=== PATIENT | female | born 1975 | race African-American/Black ===

== ENCOUNTER 2017-11-22 14:51 | Observation (INO) | payer OTHER ==
--- NOTE | 2017-11-22 15:26 | PDOC ---
History of Present Illness - General Chief Complaint: Pain, Acute Stated Complaint: ABDOMINAL PAIN Time Seen by Provider: 11/22/17 14:58 History Source: Patient Exam Limitations: No Limitations - History of Present Illness Initial Comments: This is a 42 YOF with unremarkable PMH who was referred to our ED by Urgent Care for two days of worsening crampy RLQ and suprapubic pain which has acutely worsened in the past 3 hours and now is sharp in the RLQ. She additionally notes decreased appetite and nausea, but has not had vomiting, fever, chills, diarrhea, constipation, black/bloody stool, chest pain, shortness of breath, lightheadedness, palpitations, headache, rash, vaginal bleeding or discharge, blood in the urine, dysuria, or other symptoms. She denies any chance she could be but has not been using any form of control. Last PO solids was this morning (banana and part of an apple), and she last drank water on arrival to the ED. Past History - Past Medical History Allergies/Adverse Reactions: Allergies Allergy/AdvReac Type Severity Reaction Status Date / Time latex Allergy Verified 11/22/17 14:52 Home Medications: Ambulatory Orders NK [No Known Home Medication] 11/22/17 COPD: No Other medical history: DENIES. - Suicide/Smoking/Psychosocial Hx Smoking History: Never smoked Review of Systems - Review of Systems Able to Perform ROS?: Yes Constitutional: Yes: Loss of Appetite. No: Chills, Fever, Unexplained wgt Loss HEENTM: No: Nose Congestion, Throat Pain Respiratory: No: Cough, Shortness of Breath Cardiac (ROS): No: Chest Pain, Palpitations ABD/GI: Yes: Nausea, Other (abdominal pain). No: Constipated, Diarrhea, Vomiting : No: Burning, Dysuria Musculoskeletal: No: Back Pain, Neck Pain Integumentary: No: Bruising, Rash Neurological: No: Headache, Numbness, Tingling, Weakness, Dizziness Endocrine: No: Unexplained Weight Gain, Unexplained Weight Loss *Physical Exam - Vital Signs Last Vital Signs Temp Pulse Resp BP Pulse Ox 98.3 F 111 H 20 132/86 99 11/22/17 14:52 11/22/17 14:52 11/22/17 14:52 11/22/17 14:52 11/22/17 14:52 - Physical Exam General Appearance: Yes: Nourished, Appropriately Dressed, Other (appears uncomfortable, writhing a bit in bed, answering questions appropriately, accompanied by significant other at bedside). No: Apparent Distress HEENT: positive: EOMI, Normal Voice, Hearing Grossly Normal. negative: Scleral Icterus (R), Scleral Icterus (L), Nasal Congestion Neck: positive: Trachea midline, Supple. negative: Tender, Rigid Respiratory/Chest: positive: Lungs Clear, Normal Breath Sounds. negative: Respiratory Distress, Crackles, Rhonchi, Stridor, Wheezing Cardiovascular: positive: Regular Rhythm, Regular Rate. negative: Murmur Gastrointestinal/Abdominal: positive: Normal Bowel Sounds, Tender (RLQ ttp at McBurney's point), Soft. negative: Organomegaly, Pulsatile Mass, Guarding Musculoskeletal: positive: Normal Inspection. negative: Decreased Range of Motion, Vertebral Tenderness Extremity: positive: Normal Capillary Refill, Normal Inspection, Normal Range of Motion. negative: Tender, Cyanosis Integumentary: positive: Normal Color, Dry, Warm. 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 Initial Vital Signs Temp Pulse Resp BP Pulse Ox 98.3 F 111 H 20 132/86 99 11/22/17 14:52 11/22/17 14:52 11/22/17 14:52 11/22/17 14:52 11/22/17 14:52 Exam: appears uncomfortable, writhing, normal heart and lungs, RLQ mild ttp, + right CVA ttp DDX IBNLT: obstructing ureteral stone, UTI/pyelonephritis, ovarian torsion, ovarian cyst, ectopic , PID, TOA, endometritis, salpingitis, oophoritis , Phon-Qabh-Fcoyty syndrome (if involving liver capsule ACS, AAA/AD, malignancy , hernia, cholecystitis, pancreatitis, gastritis, PUD, appendicitis, diverticulitis wwo abscess or perforation, colitis, regional ileitis (Crohns disease), SBO, bowel ischemia, bowel perforation, constipation, musculoskeletal , primary dysmenorrhea, endometriosis, fibroids, etc. W/U ordered: CBCD CMP Coags T&S UA UCx Serum Preg CT A/P with IV and PO contrast TX ordered: IVF, Ofirmev, Morphine Laboratory Tests 11/22/17 11/22/17 11/22/17 15:29 15:37 15:37 WBC 7.0 RBC 4.49 Hgb 13.2 Hct 40.1 MCV 89.3 MCH 29.3 MCHC 32.8 RDW 14.4 Plt Count 411 MPV 7.2 L Absolute Neuts (auto) 5.3 Neutrophils % 75.6 Lymphocytes % 18.7 Monocytes % 5.0 Eosinophils % 0.0 Basophils % 0.7 Nucleated RBC % 0 PT with INR INR PTT (Actin FS) Sodium 139 Potassium 3.9 Chloride 106 Carbon Dioxide 23 Anion Gap 10 BUN 9 Creatinine 1.0 Creat Clearance w eGFR > 60 Random Glucose 121 H Lactic Acid 3.2 H* Calcium 8.7 Total Bilirubin 0.3 AST 13 L ALT 16 Alkaline Phosphatase 54 Total Protein 7.9 Albumin 4.2 Serum , Qual Urine Color Urine Appearance Urine pH Ur Specific [place] Urine Protein Urine Glucose (UA) Urine Ketones Urine Blood Urine Nitrite Urine Bilirubin Urine Urobilinogen Ur Leukocyte Esterase Urine WBC (Auto) Urine RBC (Auto) Ur Epithelial Cells Urine Mucus Blood Type Antibody Screen 11/22/17 11/22/17 11/22/17 15:37 15:37 17:00 WBC RBC Hgb Hct MCV MCH MCHC RDW Plt Count MPV Absolute Neuts (auto) Neutrophils % Lymphocytes % Monocytes % Eosinophils % Basophils % Nucleated RBC % PT with INR 13.30 H INR 1.18 H PTT (Actin FS) 26.3 Sodium Potassium Chloride Carbon Dioxide Anion Gap BUN Creatinine Creat Clearance w eGFR Random Glucose Lactic Acid Calcium Total Bilirubin AST ALT Alkaline Phosphatase Total Protein Albumin Serum , Qual Negative Urine Color Urine Appearance Urine pH Ur Specific [place] Urine Protein Urine Glucose (UA) Urine Ketones Urine Blood Urine Nitrite Urine Bilirubin Urine Urobilinogen Ur Leukocyte Esterase Urine WBC (Auto) Urine RBC (Auto) Ur Epithelial Cells Urine Mucus Blood Type B POSITIVE Antibody Screen Negative 11/22/17 17:00 WBC RBC Hgb Hct MCV MCH MCHC RDW Plt Count MPV Absolute Neuts (auto) Neutrophils % Lymphocytes % Monocytes % Eosinophils % Basophils % Nucleated RBC % PT with INR INR PTT (Actin FS) Sodium Potassium Chloride Carbon Dioxide Anion Gap BUN Creatinine Creat Clearance w eGFR Random Glucose Lactic Acid Calcium Total Bilirubin AST ALT Alkaline Phosphatase Total Protein Albumin Serum , Qual Urine Color Ltyellow Urine Appearance Clear Urine pH 6.0 Ur Specific [place] 1.024 Urine Protein 1+ H Urine Glucose (UA) Negative Urine Ketones 2+ H Urine Blood 2+ H Urine Nitrite Negative Urine Bilirubin Negative Urine Urobilinogen Negative Ur Leukocyte Esterase Trace Urine WBC (Auto) 7 Urine RBC (Auto) 188 Ur Epithelial Cells Rare Urine Mucus Rare Blood Type Antibody Screen Reassessment: Symptoms improved but still somewhat painful, persistent RLQ and right CVA ttp. Not requesting any additional pain medications. The Pts symptoms persist despite ED treatments. The Pt is unsafe for discharge at this time. They require further hospital observation, workup, and treatment. Patient's PCP is Radha Blackwell. Call placed to Dr. Blackwell's service. 11/22/17 23:[address] Blackwell, in agreement patient to be admitted ot Med/Surg Obs. Requests urology consult with Dr. Infante. Decision to Admit and consult order placed. *DC/Admit/Observation/Transfer Diagnosis at time of Disposition: Ureteral stone Hydronephrosis Qualifiers: Hydronephrosis type: unspecified Qualified Code(s): N13.30 - Unspecified hydronephrosis - Discharge Dispostion Condition at time of disposition: Guarded Decision to Admit order: Yes - Referrals Referrals: Refugio Gonzalez MD [Primary Care Provider] - - Patient Instructions - Post Discharge Activity
[2017-11-22] MEDS ORDERED: ACETAMINOPHEN 1000 MG/100 ML VIAL (NON FORMULARY) IVPB ONE ×2 (15:27→23:28)
[2017-11-22] MEDS ORDERED: ACETAMINOPHEN INJECTION 100 ML IVPB ONE ×2 (15:35→23:33)
--- NOTE | 2017-11-22 16:08 | PDOC ---
Attending Attestation - Resident Resident Name: Shilpa Reina - ED Attending Attestation I have performed the following: I have examined & evaluated the patient, The case was reviewed & discussed with the resident, I agree w/resident's findings & plan, Exceptions are as noted - HPI HPI: 11/22/17 15:57 "Patient is a 42 y.o. female with no significant PMHx, who presents with RLQ pain, referred from [facility] for r/o appendicitis. Patient states that her abdominal pain began on Thursday and has been constant, non-radiating. Pt denies F /C. Endorses nausea without vomiting. Denies diarrhea/constipation. Pt was seen at [facility] urgent care today and had an US that showed R renal stone with R hydronephrosis, as well as an "abnormal appendix". Pt denies vaginal bleeding/ discharge. - Physicial Exam PE: 11/22/17 16:08 """GENERAL: Awake, alert, and fully oriented, in no acute distress. HEAD: No signs of trauma EYES: PERRLA, EOMI, sclera anicteric, conjunctiva clear ENT: Auricles normal inspection, hearing grossly normal, nares patent, oropharynx clear without exudates. Moist mucosa NECK: Nontender, no stepoffs, Normal ROM, supple, no lymphadenopathy, JVD, or masses LUNGS: Breath sounds equal, clear to auscultation bilaterally. No wheezes, and no crackles HEART: Regular rate and rhythm, normal S1 and S2, no murmurs, rubs or gallops ABDOMEN: + RLQ tenderness, no CVAT, normoactive bowel sounds. No guarding, no rebound. No masses EXTREMITIES: Normal range of motion, no edema. No clubbing or cyanosis. No cords, erythema, or tenderness NEUROLOGICAL: Cranial nerves II through XII intact. 5/5 strength and sensation in all extremities, Normal speech, normal gait, normal cerebellar function SKIN: Warm, Dry, normal turgor, no rashes or lesions noted. """ - Medical Decision Making 11/22/17 16:08 42 yo F with RLQ pain, found to have R nephrolithiasis as well as abnormal appendix on US. Will need appy r/o. - Labs, UA, UCx - CTAP with IV and PO contrast - IVF, pain control
[2017-11-22 16:09] LABS: BASO % 0.7 % (0-2.0); HEMATOCRIT 40.1 % (32.4-45.2); HEMOGLOBIN 13.2 GM/dL (10.7-15.3); LYMPH % 18.7 % (8-40); MCH 29.3 pg (25.7-33.7); MCHC 32.8 g/dl (32.0-36.0); MEAN CELL VOLUME 89.3 fl (80-96); MEAN PLT VOLUME 7.2 fl (7.5-11.1); NEUT % 75.6 % (42.8-82.8); PLATELET COUNT 411 K/MM3 (134-434); RBC 4.49 M/mm3 (3.60-5.2); RDW 14.4 % (11.6-15.6)
[2017-11-22] MEDS ORDERED: SODIUM CHLORIDE 1,000 ML IV STA (16:09)
[2017-11-22 16:40] LABS: ALBUMIN 4.2 g/dl (3.4-5.0); ANION GAP 10 (8-16); BILIRUBIN,TOTAL 0.3 mg/dL (0.2-1.0); BLOOD UREA NITROGEN 9 mg/dL (7-18); CALCIUM 8.7 mg/dL (8.5-10.1); CHLORIDE 106 mmol/L (98-107); CO2 23 mmol/L (21-32); GLUCOSE,RANDOM 121 mg/dL (74-106); POTASSIUM 3.9 mmol/L (3.5-5.1); SGOT/AST 13 U/L (15-37); SGPT/ALT 16 U/L (12-78); SODIUM 139 mmol/L (136-145); TOT PROT 7.9 g/dl (6.4-8.2)
[2017-11-22 16:41] LABS: ALK PHOS 54 U/L (45-117)
[2017-11-22 17:12] LABS: URINE APPEARANCE CLEAR; URINE BILIRUBIN NEGATIVE (<2.0 mg/dL); URINE COLOR LTYELLOW; URINE GLUCOSE (UA) NEGATIVE (NEGATIVE); URINE KETONE 2+ (NEGATIVE); URINE LEUK ESTERASE TRACE (NEGATIVE); URINE NITRITE NEGATIVE (NEGATIVE); URINE UROBILINOGEN NEGATIVE mg/dL (0.2-1.0)
[2017-11-22 17:19] LABS: URINE PROTEIN 1+ (NEGATIVE)
[2017-11-22 17:20] LABS: EPI CELLS RARE /HPF (FEW); URINE MUCUS RARE
[2017-11-22 17:24] LABS: INR 1.18 (0.82-1.09); PROTHROMBIN TIME (PATIENT) 13.3 SEC (9.7-13.0)
[2017-11-22] MEDS ORDERED: SODIUM CHLORIDE 0.9% 500 ML INFUS.BAG IV ONE (17:26)
[2017-11-22 17:27] LABS: ACTIVATED PTT 26.3 SECONDS (25.2-36.5)
[2017-11-23] MEDS ORDERED: D5-1/2NS+20 MEQ KCL - 20 MEQ/1,000 ML INFUS.BAG IV ONE (11:08)
[2017-11-23] MEDS ORDERED: ACETAMINOPHEN WITH CODEINE 300MG/30MG TABLET PO PRN (11:30)
[2017-11-23] MEDS ORDERED: ACETAMINOPHEN WITH CODEINE 300MG/30MG TABLET PO SCH (12:00)
--- NOTE | 2017-11-23 12:10 | EKG ---
Test Reason : Blood Pressure : / mmHG Vent. Rate : 085 BPM Atrial Rate : 085 BPM P-R Int : 178 ms QRS Dur : 082 ms QT Int : 384 ms P-R-T Axes : 051 035 036 degrees QTc Int : 456 ms NORMAL SINUS RHYTHM NORMAL ECG NO PREVIOUS ECGS AVAILABLE Confirmed by ALESSANDRO JACK MD ([id number]) on 11/23/2017 12:09:39 PM Referred By: Confirmed By:ALESSANDRO JACK MD
--- NOTE | 2017-11-23 13:01 | CON.GU ---
Consult Consult Specialty:: Referred by:: Rishi Reason for Consultation:: R ureteral calculus - History of Present Illness Chief Complaint: abd pain History of Present Illness: 42 yo f adm 11/22/17 c/o 3 days of R sided abd pain, found to have obstructing 7 mm R mid ureteral calculus with mod-severe R hydronephrosis and cons req. - History Source History Provided By: Patient, Medical Record - Smoking History Smoking history: Never smoked Home Medications - Allergies Allergies/Adverse Reactions: Allergies Allergy/AdvReac Type Severity Reaction Status Date / Time latex Allergy Verified 11/22/17 14:52 - Home Medications Home Medications: Ambulatory Orders NK [No Known Home Medication] 11/22/17 Review of Systems - Review of Systems Genitourinary: reports: Flank Pain Physical Exam- Vital Signs: Vital Signs Temperature 98.9 F 11/23/17 08:44 Pulse Rate 94 H 11/23/17 08:44 Respiratory Rate 18 11/23/17 10:13 Blood Pressure 113/76 11/23/17 08:44 O2 Sat by Pulse Oximetry (%) 100 11/23/17 10:13 Gastrointestinal: Yes: Soft Renal/: Yes: CVA Tenderness - Right Labs: CBC, BMP 11/22/17 15:37 11/22/17 15:37 Imaging - Results Cat Scan: Report Reviewed, Image Reviewed Problem List - Problems (1) Renal calculus Code(s): N20.0 - CALCULUS OF KIDNEY (2) Hydronephrosis Assessment/Plan: cysto R JJ stent insertion then RULL vs ESWL Code(s): N13.30 - UNSPECIFIED HYDRONEPHROSIS Qualifiers: Hydronephrosis type: unspecified Qualified Code(s): N13.30 - Unspecified hydronephrosis (3) Ureteral stone Assessment/Plan: ureteroscopic laser lithotripsy vs ESWL Code(s): N20.1 - CALCULUS OF URETER
[2017-11-23] MEDS ORDERED: ACETAMINOPHEN WITH CODEINE 300MG/30MG TABLET ONE (17:23)
--- NOTE | 2017-11-23 20:35 | HP ---
DATE OF ADMISSION: 11/22/2017 This is a 42-year-old female well known to me, came to the emergency room with complaints of lower abdominal pain mostly on the right side. In the ER, it was found that patient had kidney stones, and 1 stone is also blocking the ureter with right hydronephrosis. So, patient was admitted because of intractable pain. PHYSICAL EXAMINATION: General: On examination this morning, she is comfortable on bed. Vital Signs: BP 130/80, pulse 72, respirations 20, temperature 98. HEENT: Unremarkable. Neck: Supple. No JVD. Lungs: Clear. Heart: S1 and S2 normal. No S3, S4. Abdomen: Soft. No CVA tenderness. No suprapubic tenderness. Legs: No edema. Neurologic: Grossly normal. LABORATORY REPORTS: CBC, CMP, and urinalysis unremarkable. Chest x-ray is negative. CT of abdomen showed right hydronephrosis with a 6-mm stone blocking in the right ureter. Also, has small stones in both kidneys. IMPRESSION: Ureter and hydronephrosis. PLAN: Urology consult, Dr. Pritchett, Dr. John. IV fluid, D5 half-normal with 20 mEq of KCL to 100 mL. Advised to drink plenty of water and Tylenol No. 3 two tablets q.6 hours p.r.n. for pain. She will be admitted to the regular floor. Will follow. RAJAN DAVIS M.D. [id number]
[2017-11-24 00:04] VITALS: BMI 28.8
[2017-11-24] MEDS ORDERED: SUCCINYLCHOLINE CHLORIDE 200 MG/10 ML VIAL ONE (07:05)
[2017-11-24] MEDS ORDERED: MIDAZOLAM HCL 2 MG/2 ML SINGLE DOSE VIAL ONE (07:05)
[2017-11-24] MEDS ORDERED: PROPOFOL 20 ML ONE ×2 (07:05)
--- NOTE | 2017-11-24 08:03 | OP ---
Operative Note - Note: Operative Date: 11/24/17 Pre-Operative Diagnosis: R ureteral calculus, R hydronephrosis Operation: cystoscopy R JJ stent insertion Findings: R ureteral calculus, R hydronephrosis, tortuous R ureter Post-Operative Diagnosis: Same as Pre-op Surgeon: Glenn Espinoza Anesthesiologist/MANAGER INTENSIVE CARE UNIT: [facility]te Anesthesia: General Estimated Blood Loss (mls): 0 Drains & Tubes with Location: 6 fr 26 cm R JJ Operative Report Dictated: Yes
[2017-11-24] MEDS ORDERED: ceFAZolin SODIUM 1 GM VIAL IVPB ONE (08:08)
[2017-11-24] MEDS ORDERED: LIDOCAINE HCL 2% JELLY 10 ML CARTRIDGE TP ONE (08:30)
[2017-11-24] MEDS ORDERED: oxyCODONE HCL 5 MG TABLET PO PRN (08:45)
[2017-11-24] MEDS ORDERED: ONDANSETRON 4 MG/2 ML VIAL IVPUSH PRN (08:45)
[2017-11-24] MEDS ORDERED: LACTATED RINGERS SOLUTION 1,000 ML IV SCH (08:45)
--- NOTE | 2017-11-24 08:47 | OP ---
Operative Note - Note: Operative Date: 11/24/17 Pre-Operative Diagnosis: R ureteral calculus, R hydronephrosis Operation: cystoscopy, R JJ stent insertion Findings: R ureteral calculus, R hydronephrosis Post-Operative Diagnosis: Same as Pre-op Estimated Blood Loss (mls): 0 Drains & Tubes with Location: 6 fr 24 cm R JJ Operative Report Dictated: Yes
[2017-11-24] MEDS ORDERED: ACETAMINOPHEN WITH CODEINE 300MG/30MG TABLET PO PRN (08:49)
[2017-11-24] MEDS ORDERED: ACETAMINOPHEN INJECTION 100 ML IVPB ONE (09:00)
--- NOTE | 2017-11-24 09:06 | OP ---
DATE OF OPERATION: 11/24/2017 PREOPERATIVE DIAGNOSIS: Right ureteral calculus, right hydronephrosis. POSTOPERATIVE DIAGNOSIS: Right ureteral calculus, right hydronephrosis. PROCEDURE: Cystoscopy, right double-J stent insertion. SURGEON: Glenn Espinoza MD RUSTIC TERRAZZO SETTER: None. ANESTHESIA: General via laryngeal mask. ANESTHESIOLOGIST: Maryana. SPECIMENS: None. CULTURES: None. DRAINS: 6-Comoran 26-cm right double-J stent. ESTIMATED BLOOD LOSS: None. COMPLICATIONS: None. DESCRIPTION OF PROCEDURE: Patient was brought in the operating room, placed on the operating table in supine position. After administration of general anesthesia via laryngeal mask, intravenous antibiotics were administered. Sequential compression devices were placed, and the patient was placed in dorsal lithotomy position. The vagina and perineum were prepped and draped in the usual sterile manner. A 22-Comoran cystoscope inserted into the bladder with the obturator in place. The obturator was removed, and urine was evacuated. The 30-degree telescope was inserted, and cystoscopy was performed. This demonstrated no foreign bodies, tumors, stones, inflammation. Both ureteral orifices were in their usual location with clear efflux bilaterally. The right ureteral orifice showed diminished efflux. The right ureteral orifice was now cannulated with a 0.038 guidewire which was advanced to the level of the right renal pelvis under fluoroscopic and direct visual guidance. Now, a dual-lumen catheter was inserted. Retrograde pyelogram was done, demonstrated an extremely tortuous right ureter and [id number] right hydroureteronephrosis down to a distal ureteral obstructing stone that could not be clearly seen on fluoroscopy. There was a larger calcified density within the course of the ureter, overlying the sacrum. The dual-lumen catheter was then removed, and a 6-Comoran 26-cm right double-J stent was inserted over the guidewire under direct visual and fluoroscopic guidance, leaving 1 coil just proximal to the ureteropelvic junction and 1 coil in the bladder. Bladder was emptied. Cystoscope removed. She tolerated the procedure well, transferred to recovery room in stable condition. PLAN: Follow up in the office to schedule ureteroscopic laser lithotripsy and stent change. Nicole [id number] cc: Radha Blackwell MD
[2017-11-24] MEDS ORDERED: ACETAMINOPHEN 1000 MG/100 ML VIAL (NON FORMULARY) IVPB ONE (09:30)
[2017-11-24 15:44] VITALS: BP 118/87; PULSE 87; TEMP 99.3
== END 2017-11-24 16:31 | disposition home or self-care (01) ==
LOC: JER 14:51 → JERBED 22:34 → J6S 11-23 23:08
PROVIDERS: ADMIT Internal Medicine; ATTEND Internal Medicine
PROC: 0T9680Z Drainage of Right Ureter with Drainage Device, Via Natural or Artificial Opening Endoscopic (ICD-10-PCS; principal; 2017-11-22)
PROC: 3E03329 Introduction of Other Anti-infective into Peripheral Vein, Percutaneous Approach (ICD-10-PCS; 2017-11-22)
PROC: 3E033NZ Introduction of Analgesics, Hypnotics, Sedatives into Peripheral Vein, Percutaneous Approach (ICD-10-PCS; 2017-11-22)
PROC: 3E033GC Introduction of Other Therapeutic Substance into Peripheral Vein, Percutaneous Approach (ICD-10-PCS; 2017-11-22)
PROC: 3E0337Z Introduction of Electrolytic and Water Balance Substance into Peripheral Vein, Percutaneous Approach (ICD-10-PCS; 2017-11-22)
DX: N13.2 Hydronephrosis with renal and ureteral calculous obstruction (principal)
CPT/HCPCS: 36415; 71045-TC-FY; 74177-TC; 80053; 81003; 81015; 83605; 84703; 85025; 85610; 85730; 86850; 86900; 86901; 93005; 93010; 99285-25; G0378; J0131; J7030

== ENCOUNTER 2018-01-07 05:05 | Day surgery (SDC) | payer OTHER ==
[2018-01-05 12:11] VITALS: BMI 28.8
[2018-01-07] MEDS ORDERED: oxyCODONE HCL 5 MG TABLET PO PRN ×2 (11:53)
[2018-01-07] MEDS ORDERED: ONDANSETRON 4 MG/2 ML VIAL IVPUSH PRN (11:53)
[2018-01-07] MEDS ORDERED: LACTATED RINGERS SOLUTION 1,000 ML IV SCH (12:00)
[2018-01-07] MEDS ORDERED: SEVOFLURANE 250 ML BTL ONE (12:37)
[2018-01-07] MEDS ORDERED: MIDAZOLAM HCL 2 MG/2 ML SINGLE DOSE VIAL ONE (12:42)
[2018-01-07] MEDS ORDERED: PROPOFOL 20 ML ONE (12:42)
[2018-01-07] MEDS ORDERED: LIDOCAINE HCL/PF 2% SDV 5ML VIAL ONE (12:45)
[2018-01-07] MEDS ORDERED: KETOROLAC TROMETHAMINE 30 MG/1 ML VIAL ONE (12:45)
--- NOTE | 2018-01-07 13:19 | OP ---
Operative Note - Note: Operative Date: 01/07/18 Pre-Operative Diagnosis: R ureteral calculus, R hydronephrosis Operation: R ureteroscopic laser lithotripsy and JJ stent change Findings: radiopaque 8 mm R mid ureteral calculus, mod R hydro Surgeon: Glenn Espinoza Anesthesiologist/LETTUCE CUTTER: Roman Pleitez Anesthesia: General Specimens Removed: R ureteral calculi, R JJ stent Drains & Tubes with Location: 6 fr 26 cm R JJ Operative Report Dictated: Yes
[2018-01-07] MEDS ORDERED: ceFAZolin SODIUM 1 GM VIAL IVPB ONE (13:28)
[2018-01-07] MEDS ORDERED: IOHEXOL 300 MG/ML INFUS..BTL IJ ONE (13:45)
[2018-01-07] MEDS ORDERED: FUROSEMIDE 40 MG/4 ML INJECTABLE VIAL ONE (13:49)
[2018-01-07] MEDS ORDERED: LIDOCAINE HCL 2% JELLY 10 ML CARTRIDGE ONE (14:28)
[2018-01-07] MEDS ORDERED: LIDOCAINE HCL 2% JELLY 10 ML CARTRIDGE TP ONE (14:30)
[2018-01-07] MEDS ORDERED: MEPERIDINE HCL CARPU-JECT 25 MG/1 ML DISP.SYRIN IVPUSH ONE ×2 (14:50→15:15)
[2018-01-07] MEDS ORDERED: ACETAMINOPHEN 1000 MG/100 ML VIAL (NON FORMULARY) IVPB ONE ×2 (14:55→15:15)
--- NOTE | 2018-01-07 15:11 | OP ---
DATE OF OPERATION: 01/07/2018 PREOPERATIVE DIAGNOSES: Right ureteral calculus, right hydronephrosis. POSTOPERATIVE DIAGNOSES: Right ureteral calculus, right hydronephrosis. PROCEDURE: Right ureteroscopic laser lithotripsy, right double-J stent change, stone basketing. SURGEON: Glenn Espinoza MD SUPERVISOR FINAL: None. ANESTHESIA: General via laryngeal mask. ANESTHESIOLOGIST: Pricilla. SPECIMENS: Right ureteral calculi, right double-J stent. CULTURES: None. DRAINS: A 6-Ukrainian 26-cm right double-J stent. ESTIMATED BLOOD LOSS: None. COMPLICATIONS: None. DESCRIPTION OF PROCEDURE: Patient was brought into the operating room, placed on the operating table in the supine position. After administration of general anesthesia via laryngeal mask, intravenous antibiotics were administered. Sequential compression devices were placed. The patient was placed in dorsal lithotomy position. The vagina and perineum were prepped and draped in usual sterile manner. A 22-Ukrainian cystoscope was inserted into the bladder. Cystoscopy was performed. This demonstrated no tumors, stones, or inflammation. There was a right double-J stent in good position. The right double-J stent was grasped at its tip, brought to the urethral meatus, cannulated with a 0.038 guidewire which was advanced to the level of the right renal pelvis under fluoroscopic guidance. The double-J stent was removed, sent to Pathology as specimen. Now, intravenous Lasix 10 mg was given. Now, the semi-rigid ureteroscope was inserted into the bladder, then alongside the guidewire into the right ureteral orifice. It was advanced into the mid-ureter where an approximately 8-mm radiopaque stone was visualized. Now, the 365 micron laser fiber was inserted. Laser lithotripsy was done. The stone was fragmented into minute pieces. The larger fragments were removed with a basket now. Now, retrograde pyelogram was done, demonstrated tortuous ureter and moderate right hydronephrosis. Now, the cystoscope was backloaded, and a 6-Ukrainian 26-cm right double-J stent was inserted over the guidewire under direct visual and fluoroscopic guidance, leaving 1 coil in the renal pelvis and 1 coil in the bladder. She tolerated the procedure well, was awoken from anesthesia in the operating room, and transferred to the recovery room in stable condition. She will be followed in the office Thursday for stent removal. Nicole [id number]
[2018-01-07 15:35] VITALS: TEMP 99
[2018-01-07 17:56] VITALS: BP 104/61; PULSE 86
--- NOTE | 2018-01-11 09:25 | PATH ---
Surgical Pathology Report Patient Name: DESTINY GONZALEZ Med. Rec. #: [id number] /Age/Gender: 1975 (Age: 42) / F Account: [id number] Location: [facility] SURGICAL Taken: 01/07/2018 Received: 01/08/2018 Reported: 01/11/2018 Physicians: Glenn Espinoza M.D. Specimen(s) Received A: RIGHT URETERAL CALCULI B: OLD DOUBLE J URETERAL STENT RIGHT Clinical History Right ureteral calculus, right hydronephrosis Final Diagnosis A. URETERAL CALCULUS, RIGHT, LASER LITHOTRIPSY: URETEROLITHIASIS. MACROSCOPIC DIAGNOSIS. B. URETERAL STENT, RIGHT, OLD, REMOVAL: URETERAL STENT. MACROSCOPIC DIAGNOSIS. Electronically Signed Leanna Guillen M.D. Gross Description A. Received fresh labeled "right ureteral calculus," is a 0.6 x 0.5 x 0.2 cm aggregate of zambrano, irregular to fragmented portions of calculi. The specimen is sent for chemical analysis. B. Received fresh labeled "old right ureteral stent," is a 37 cm in length blue-green, coiled portion of tubing, consistent with a ureteral stent. No soft tissue is present. No sections are submitted, gross. /01/08/2018 saudi01/08/2018
== END 2018-01-07 17:15 | disposition home or self-care (01) ==
LOC: JASU-SURG 05:05
PROVIDERS: ATTEND Urology
PROC: 0TF68ZZ Fragmentation in Right Ureter, Via Natural or Artificial Opening Endoscopic (ICD-10-PCS; principal; 2018-01-07 13:00)
PROC: 0T768DZ Dilation of Right Ureter with Intraluminal Device, Via Natural or Artificial Opening Endoscopic (ICD-10-PCS; 2018-01-07 13:00)
DX: N13.2 Hydronephrosis with renal and ureteral calculous obstruction (principal)
CPT/HCPCS: 36415; 76000-TC-FY; 82360; 84703; 88300-TC; 94760; J0131

== ENCOUNTER 2018-02-23 09:29 | Day surgery (SDC) | payer OTHER ==
[2018-02-22 11:02] VITALS: BMI 28.1
--- NOTE | 2018-02-23 07:57 | HP ---
History & Physical Update - History History: No Change - Physical Physical: No Change - Assessment Assessment: No Change - Plan Plan: No Change
--- NOTE | 2018-02-23 07:58 | OP ---
Operative Note - Note: Operative Date: 02/23/18 Pre-Operative Diagnosis: R renal calculus Operation: ESWL R Findings: R renal calculus Post-Operative Diagnosis: Same as Pre-op Surgeon: Glenn Espinoza Anesthesiologist/REGISTERED PHARMACY TECHNICIAN: Elly Pittman Anesthesia: Fractional Estimated Blood Loss (mls): 0 Operative Report Dictated: Yes
[2018-02-23 09:53] VITALS: TEMP 97.8
[2018-02-23] MEDS ORDERED: PROPOFOL 20 ML ONE (10:21)
[2018-02-23] MEDS ORDERED: MIDAZOLAM HCL 2 MG/2 ML SINGLE DOSE VIAL ONE (10:21)
[2018-02-23] MEDS ORDERED: LIDOCAINE HCL/PF 2% SDV 5ML VIAL ONE (10:21)
[2018-02-23] MEDS ORDERED: KETOROLAC TROMETHAMINE 30 MG/1 ML VIAL ONE ×2 (10:21→10:40)
--- NOTE | 2018-02-23 11:19 | OP ---
DATE OF OPERATION: 02/23/2018 PREOPERATIVE DIAGNOSIS: Right renal calculus. POSTOPERATIVE DIAGNOSIS: Right renal calculus. PROCEDURE: Extracorporeal shock-wave lithotripsy, right renal calculus. SURGEON: Glenn Lay MD CHILD CARE TEACHER: None. ANESTHESIA: IV sedation. ANESTHESIOLOGIST: Elly Pittman MD SPECIMENS: None. CULTURES: None. DRAINS: None. ESTIMATED BLOOD LOSS: None. COMPLICATIONS: None. DESCRIPTION OF PROCEDURE: The patient was brought into the operating room and placed on the operating room table in supine position. After administration of intravenous sedation, the patient was positioned over the treatment head, and under ultrasound guidance, an approximately 3-mm right lower pole renal calculus was identified, targeted, and delivered 2500 shocks at maximum kilovoltage with excellent fragmentation. She tolerated the procedure well and was transferred to the recovery room in stable condition. GLENN LAY M.D. OWEN/[id number]
[2018-02-23 12:41] VITALS: BP 128/70; PULSE 72
== END 2018-02-23 12:40 | disposition home or self-care (01) ==
LOC: JASU-SURG 09:29
PROVIDERS: ATTEND Urology
PROC: 0TF3XZZ Fragmentation in Right Kidney Pelvis, External Approach (ICD-10-PCS; principal; 2018-02-23 09:45)
DX: N20.0 Calculus of kidney (principal)
CPT/HCPCS: 84703

== ENCOUNTER 2020-03-06 04:36 | Inpatient (IN) | payer OTHER ==
[2020-03-05 15:32] VITALS: BMI 32.5
--- OUTSIDE RECORDS SUMMARY | 2020-03-06 04:40 | XMS ---
:1975 Author Organization [facility] Care Team Providers Name Role Phone Herman, Sintia PROCUREMENT CONSULTANT Unavailable Unavailable Herman, Sintia PROCUREMENT CONSULTANT Unavailable Unavailable Herman, Isntia PROCUREMENT CONSULTANT Unavailable Unavailable Herman, Sintia PROCUREMENT CONSULTANT Unavailable Unavailable Herman, Sintia PROCUREMENT CONSULTANT Unavailable Unavailable Herman, Sintia PROCUREMENT CONSULTANT Unavailable Unavailable Herman, Sintia PROCUREMENT CONSULTANT Unavailable Unavailable Herman, Sintia PROCUREMENT CONSULTANT Unavailable Unavailable Herman, Sintia PROCUREMENT CONSULTANT Unavailable Unavailable Herman, Sintia PROCUREMENT CONSULTANT Unavailable Unavailable Herman, Sintia PROCUREMENT CONSULTANT Unavailable Unavailable Herman, Sintia PROCUREMENT CONSULTANT Unavailable Unavailable Herman, Sintia PROCUREMENT CONSULTANT Unavailable Unavailable Herman, Sintia PROCUREMENT CONSULTANT Unavailable Unavailable Herman, Sintia PROCUREMENT CONSULTANT Unavailable Unavailable Herman, Sintia PROCUREMENT CONSULTANT Unavailable Unavailable RACHAEL LAY Unavailable Unavailable [facility] Unavailable Unavailable Michael SPEAR Unavailable Unavailable MD DANA Unavailable Unavailable DOCTOR Unavailable Unavailable Mely MOREL MD Unavailable Unavailable Re-disclosure Warning The records that you are about to access may contain information from federally- assisted alcohol or drug abuse programs. If such information is present, then the following federally mandated warning applies: This information has been disclosed to you from records protected by federal confidentiality rules (42 CFR part 2). The federal rules prohibit you from making any further disclosure of this information unless further disclosure is expressly permitted by the written consent of the person to whom it pertains or as otherwise permitted by 42 CFR part 2. A general authorization for the release of medical or other information is NOT sufficient for this purpose. The Federal rules restrict any use of the information to criminally investigate or prosecute any alcohol or drug abuse patient.The records that you are about to access may contain highly sensitive health information, the redisclosure of which is protected by Article 27-F of the [facility] Public Health law. If you continue you may haveaccess to information: Regarding HIV / AIDS; Provided by facilities licensed or operated by the [facility] Office of Mental Health; or Provided by the [facility] Office for People With Developmental Disabilities. If such information is present, then the following [facility] mandated warning applies: This information has been disclosed to you from confidential records which are protected by state law. State law prohibits you from making any further disclosure of this information without the specific written consent of the person to whom it pertains, or as otherwise permitted by law. Any unauthorized further disclosure in violation of state law may result in a fine or prison sentence or both. A general authorization for the release of medical or other information is NOT sufficient authorization for further disclosure. Allergies and Adverse Reactions Type Description Substance Reaction Status Data Source(s ) No information No information No information No information Centricity available. available. available. available. No ([facility]. [facility]) No information available. Drug allergy No Known Allergies No Known Allergies [facility] Encounters Encounter Providers Location Date Indications Data Source(s ) Outpatient Attender: RADHA [facility] 03/02/2020 [facility] 08:10:20 PM ([facility]) Outpatient Attender: RADHA [facility] 10/31/2019 [facility] 03:57:00 PM ([facility]) Outpatient Attender: ARDHA [facility] 10/31/2019 [facility] 03:56:01 PM ([facility]) Outpatient Attender: RADHA [facility] 10/31/2019 [facility] 03:54:01 PM ([facility]) Outpatient Attender: RADHA [facility] 10/19/2019 [facility] 11:23:00 AM ([facility]) Outpatient Attender: RADHA [facility] 10/17/2019 [facility] 01:49:00 PM ([facility]) [place] [address] 10/16/2019 [facility] 09:50:01 AM ([facility]) [facility] [address] 10/14/2019 [facility] 03:25:01 PM ([facility]) Shade Hanger: Sintia 10/14/2019 [facility] radha Sutton PROCUREMENT CONSULTANT 09:[facility] 09:23:01 AM EDT [place] [address] 10/14/2019 [facility] 09:20:01 AM ([facility]) [facility]/14/[facility] 07:44:00 AM ([facility]) [facility] 10/12/2019 [facility] 09:01:36 PM ([facility]) Outpatient Attender: [facility] 10/12/2019 [facility] 07:20:00 PM ([facility]) Outpatient ALL 10/12/2019 Centricity 07:14:00 PM ([facility]) Emergency Attender: MASOUD 05/08/2019 SEVERE ABD PAIN S t Romana CORTEZ 11:32:00 AM Hospital [facility] 05/08[facility]2019 ADRIEL 05:34:00 PM MDReferrer: NO EST DOCTORConsultant: GEO BYFIELDConsultant: RACHAEL LAY SEVERE ABD PAIN Patient discharged. P Attender: ODALYS 05/08/2019 11:25:00 AM [address] [facility] [facility] Romana MOREL MD [facility] SEVERE ABD PAIN P Attender: ODALYS 05/08/2019 11:25:00 AM SE [facility] ADRIEL FERNANDEZ [facility] SEVERE ABD PAIN P Attender: ODALYS 05/08/2019 11:09:00 AM SE [facility] ADRIEL FERNANDEZ [facility] SEVERE ABD PAIN P Attender: ODALYS 05/08/2019 11:08:00 AM SE FADY A[facility] ADRIEL FERNANDEZ [facility] SEVERE ABD PAIN P [facility]/08/2019 11:08:00 AM SE F[facility]Y A[facility] ADRIEL FERNANDEZ [facility] SEVERE ABD PAIN P [facility] 05/08/2019 11:08:00 AM [facility] ADRIEL FERNANDEZ [facility] SEVERE ABD PAIN P Attender: ODALYS 05/08/2019 11:06:00 AM SE FADY ABD [facility] ADRIEL FERNANDEZ [facility] SEVERE ABD PAIN P [facility] 05/08/2019 11:06:00 AM SE F[facility]Y A[facility] ADRIEL FERNANDEZ [facility] SEVERE ABD PAIN P [facility] 05/08/2019 11:05:00 AM SE [facility] ADRIEL FERNANDEZ [facility] SEVERE ABD PAIN P [facility]: [facility] 05/08/2019 11:05:00 AM [facility] ADRIEL FERNANDEZ [facility] SEVERE ABD PAIN P Att[facility]: [facility] 05/08/2019 11:05:00 AM SE [facility] ADRIEL FERNANDEZ [facility] SEVERE ABD PAIN P Att[facility]: [facility] 05/08/2019 11:05:00 AM SE FADY ABD [facility] ADRIEL FERNANDEZ [facility] SEVERE ABD PAIN P Attender: ODALYS 05/08/2019 11:05:00 AM SE [facility] ADRIEL FERNANDEZ [facility] SEVERE ABD PAIN P Attender: ODALYS 05/08/2019 11:04:00 AM SE FADY ABD PAIN [facility] ADRIEL FERNANDEZ [facility] SEVERE ABD PAIN P Attender: ODALYS 05/08/2019 11:04:00 AM SE FADY ABD PAIN [facility] ADRIEL FERNANDEZ [facility] SEVERE ABD PAIN P 05/08/2019 10:51:00 AM EST SEVERE AB D PAIN [facility] SEVERE ABD PAIN P 05/08/2019 10:50:00 AM EST SEVERE AB D PAIN [facility] SEVERE ABD PAIN P Attender: ODALYS 05/08/2019 10:49:00 AM SE FADY ABD PAIN [facility] ADRIEL FERNANDEZ [facility] SEVERE ABD PAIN Medications Medication Brand Start Product Dose Route Administrative Pharmacy [facility] Indications Reaction Description Data Name Date Form Instructions Instructions Source(s) tramadol TRAMAD 05/08/ TABLET [address] [facility] hydrochlori OL HCL 2018 ed HOURS Cornw all de 50 MG (ULTRA 12:00: Hospita l - Oral Tablet M) 50 00 AM [place] [Ultram] MG EST TRAMADOL TABLET HCL (ULTRAM) 50 MG TABLET No complet No Centricity information ed information ( Cornersto available. available. ne [facility] ) pantoprazol Pantop TABLET, [address] e 40 MG razole DELAYED ed BREAKFAST Co rnwall Delayed Sodium RELEASE Hospita l - Release (Venu [place] Oral Tablet nix) [Protonix] 40 MG Pantoprazol TABLET e Sodium .DR (Protonix) 40 MG TABLET. Insurance Providers Payer name Policy type Policy ID Covered Covered republican's Policy P shaila / Coverage republican ID relationship to [place] Inf ormation type [place] CIGDANTE [id number] SP [id number] [employer] [place] [id number] SP [id number] [facility] [id number] SP [id number] [facility] [id number] SP [id number] [employer] Problems, Conditions, and Diagnoses Code Display Name Description Problem Type Effective Dates Data Source(s) Z01.84 Immunity status Immunity status Diagnosis 10/14/2019 Cent ricity testing, antibody testing, antibody 12:00:00 AM EDT ([facility] response response [facility]) Z20.828 Exposure to Exposure to Diagnosis 10/14/2019 Centricity COVID-19 COVID-19 12:00:00 AM EDT ([facility] coronavirus coronavirus [facility]) J11.1 Influenza like Influenza like Diagnosis 10/14/2019 [facility] city illness illness 12:00:00 AM EDT ([facility]) Z87.442 Personal history PERSONAL HISTORY Diagnosis 05/08/2019 [facility] of urinary OF URINARY 11:32:00 AM [facility] calculi CALCULI [facility] R30.0 Dysuria DYSURIA Diagnosis 05/08/2019 [facility] 11:32:00 AM [facility] D18.09 Hemangioma of HEMANGIOMA OF Diagnosis 05/08/2019 [facility] other sites OTHER SITES 11:32:00 AM [facility] R10.9 Unspecified UNSPECIFIED Diagnosis 05/08/2019 [facility] abdominal pain ABDOMINAL PAIN 11:32:00 AM [facility] Results ID Date Data Source [id number] 03/01/2020 11:15:00 AM EDT [facility] Name Value Range Interpretation Description Data Sup porting Code Source(s) Document(s ) SARS [facility] coronavirus 2 RNA This lab was ordered by [facility] and reported by [facility]. ID Date Data Source [id number] 05/09/2019 10:39:00 AM [facility] PATIENT: DESTINY GONZALEZ STATUS: DEP ERACCOUNT #: [id number] SERVICE UNIT #: [id number] LOCAT ION: L.ERSEX: F PCP PHYS: YUKI MOOREOB: AGE: 43 HPI Current HistoryAllergiesCoded Allergies:No Known Allergies (05/08/19) GeneralChief Complaint FLANK PAIN History of Present IllnessIni tial Drykrkba6 Y/O FEMALE PRESENTS TO THE ED C/O PAIN TO L FLANK W/O MOVEMENT INTO GR OIN WITH ASSOCIATED DYSURIA. NO ACITVE N/V. DENIES VAGINAL BLEEDING OR D/C, FEVER, C P, SOB OR ANY OTHER SX. PRIOR HX OF KIDNEY STONES 2018 WHICH REQUIRED A STENT. FABI ES ANYRECENT INJURY OR DIETARY CHANGES WHICH SHE CAN RECALL.TOOK PANTOPRAZOLE THIS MO RNING AND ADVIL AT 09:00. Time Course still presentCurrent Symptoms Vomiting denie s Diarrhea denies Abdominal Pain moderate Location of Pain FLANK Radiation to groin Associated with nausea Exacerbated by denies Relieved by deniesSeverity m oderate, when seen in ED-moderateSimilar Symptoms Previously yesRecently Seen by Doctor No Portions of this section were scribed by ILSA ORTIZ on 05/08/19 at 1738 Review of SystemsConstitutional Constitutional denies chills, denies f ever, denies subjective feverCardiovascular Cardiovascular denies chest pain, fabi es palpitationsRespiratory Respiratory denies cough, denies shortness of breath , denies trouble breathingGastrointestional Gastrointestinal reports abdominal anna n, reports nausea, reports vomiting, denies constipation, denies diarrheaUrinary U rinary denies problems urinatingMusculoskeletal Musculoskelet al reports back pain, denies spasms, denies weaknessSkin Skin denies rashNeuro Neuro denies black out, denies dizzy, denies headache, denies pre-existing def icitsHeme/Lymph Heme/Lymph denies anemia, denies bleeding tendency, denies easily bruise, denies tendernessImmuno/Allergy Immuno/Allergy denies anaphylaxis, den ies severe allergies, denies treated with epinephrineAll Other Systems pertinent r evw'd neg Physical examVital signsVital Signs Date Time Temp Pulse Resp B /P B/P Pulse O2 O2 Flow FiO2 M brian Ox Delivery Rate 05/08 1108 98.9 109 18 135/89 99 12/0 8 1101 98.9 109 18 135/89 99 Physical ExamCommentEENT: HEAD/FACE : NC/AT RESP: NO RESPIRATORY DISTRESS CARDIO: Rate: 109 BPM ABD: S/S/NT X4 QUADS, W/O PULSATILE MASSES, SUPRAPUBIC TENDERNESS, ABD REPRODUCIBLE IN L FLANK MUSCULOSKELETAL: CHEST: ATRAUMATIC, SYMMETRICAL, NO TENDERNESS TO PALPATIONBACK: ATRAUMATIC, NO C/T/L-SPINE MIDLINE TENDERNESSEXTREMITIES: NORMAL APPEARING, NO EDEMA/TENDERNESS, FROM X4 EXTREMITIESNECK: SUPPLE, NO MIDLINE TEND ERNESS SKIN: COLOR NORMAL, DRY, GOOD TURGOR, NO LESIONS/RASHES NEURO: NO GROSS MOTOR OR SENSORY DEFICIT, SPEECH NORMAL PSYCH: NORMAL MOOD AND AFFECT, ORIENTED X3, ANS WERS QUESTIONS APPROPRIATELY Portions of this section were scribed by ILSA ORTIZ 05/08/19 at 1738 Last lab resultsPulse ox normalOther ImagingTRANSVAGINAL US DEPARTMENT OF DIAGNOSTIC IMAGING Patient Name: DESTINY CAMERON : 1975Patient Addr.: [address], MR#: [id number] [place] [address] Phone #: Dictate Date: 05/08/19 1655Ordering MPatricia: MAZIN CALLEMD ID: [id number] Trans Date:Copies to: MAZIN VERAS;CC ID: [Patient Loc: Gala #: [id number] Number(s): [id number] [facility]: [facility]19 1527 Exam: TRANSVAGINAL ECHO PROCED URE: US TRANSVAGINAL ECHO COMPARISON: Precontrast CT examination of the pelvis done prior to this examination INDICATIONS: RADIOLOGIST RECOMMENDED, FOR ABSCESS, FLUID COLLECTION NOTED UTERUS VIEWS: Transabdominal and transvaginal probes w ere used. FINDINGS: The uterus is heterogeneous and is enlarged measuring 14.0 cm in length by 11.2 cm in widthby 7.1 cm in AP diameter. There is a complex va scular collection present near the fundus ofthe uterus measuring 4.0 x 2.6 x 1.1 c m and this may correspond to the fluid area seen onrecent CT examination. The endom etrium is 10 mm and contains an echogenic focus measuring1.0 x 0.7 cm. There is a trace amount of fluid present in the posterior cul de sac. Thereis some flui d present bilaterally in the cervical region. Neither ovary is visualized mostlikely obscured by the enlarged fibroid uterus. CONCLUSION: 1. Enlarged fibroid uterus. 2. Neither ovary is visualized. 3. There is a complex vascular collection present in t he site of the fluid collection seenon recent CT examination. Clinical correlation is suggested as well as correlation withfollowup. 4. There is an echogenic f ocus in the endometrium. This may represent possibleendometrial polyp and correlatio n with followup is suggested. Dictated by: Mami Yuen MD on 05/08/2019 at 4:43 PM Approved by: Mami Yuen MD on 05/08/2019 at 4:55 PM ABD CTA DEPARTMENT OF DIAGNOSTIC IMAGING Patient Name: DESTINY CAMERON : 1975Patient Addr.: [address], MR#: [id number] [place] [address] Phone #: Dictate Date: 05/08/19 1321Ordering MPatricia: MAZIN CALLEMD ID: [id number] Trans Date:Copies to: MAZIN VERAS;CC ID: [Patient Loc: LATAeport #: [id number] Number(s): [id number] [facility]: - 05/08/19 1244 Exam: CT ABD/PEL WO ORAL OR IV CT RST PROCEDURE: CT ABD/PEL WO ORAL OR IV CTRST COMPARISON: None. INDICATIONS: HAS HAD PRIOR H/O KIDNEY STONES 2018, W/STENT, N/V, L FLANK, MODERATE TECHNIQ UE: After obtaining the patient's consent, CT images of the abdomen and pelviswere created without non-ionic intravenous contrast material. This CT was performed utilizing dose reduction software. FINDINGS: KIDNEYS: Normal. No mass, obstruction , or calcification. ADRENALS: Normal. No mass or enlargement. URINARY BLADDER: Normal. No visible focal wall thickening, lesion, or calculus. LIVER: Normal. N o enlargement, atrophy, abnormal density, or significant focallesion. BILIARY: Norm al. No visible dilatation or calcification. PANCREAS: Normal. No lesion, fluid co llection, ductal dilatation, or atrophy. SPLEEN: Normal. No enlargement or foc al lesion. AORTA/VASCULAR: Normal. No aneurysm. RETROPERITONEUM: Normal. No mass or adenopathy. BOWEL/MESENTERY: Normal. No visible mass, obstruction, o r bowel wall thickening. ABDOMINAL WALL: Normal. No mass or hernia. PELVIC NODES : Normal. No adenopathy. PELVIC ORGANS: Uterus is markedly enlarged likely secon claire to fibroids. There is an 8 x5 cm fluid collection or fluid containing structure at the inferior aspect of the uterus/superior aspectof the bladder. SRI CARIE: Normal. No bony lesion or fracture. LUNG BASES: Normal. No visible pulmon priscila or pleural disease. OTHER: Negative. This is a S igned report >>>>>>>>>>>>>>>>>>>>>>>>>>>>>>>>>>>>>> END OF PAGE <<<<<<<<<<<<<<<<<<<<<<<<<<<<<<<<<<<<< < PATIENT'S NAME: DESTINY GONZALEZ DATE OF EXAM: 05/08/19 RE PORT #:[id number] CONCLUSION: No renal ureteral or bladder stones. 8 x 5 cm fl uid collection or fluid containing structure at the inferior aspect oftheuterus/ supe rior aspect of the bladder. Findings are nonspecific. Abscess not excluded. Enla rge uterus likely secondary to fibroids. Further evaluation with pelvic ultrasoun d or MRI can be obtained for further evaluation. Dictated by: Josh bunch MD on 05/08/2019 at 1:12 PM Approved by: Josh Cosby MD on 05/08/2019 at 1:21 PM Signed: 05/08/19 1321 Lab Results These Lab results have been revi ewed and interpreted by or.Laboratory Tests 05/08 Range/Units 1215 Urin es Urine Color YELLOW YELLOW Urine Cl arity CLEAR CLEAR Urine pH 5.5 4.6 - 8.0 Ur Specific [place] 1.025 1.001 - 1.035 Urine Protein NEGATIVE NEGATIVE Urine Ketones 80 NEGATIVE mg/dL Urine Blood SM ALL NEGATIVE Urine Nitrite NEGATIVE NEGATIVE Urine Bilirubin NEGATIVE NEGATIVE Urine Urobilinog en 0.2 0.2 - 0.9 E.U./dL Urine Leukocytes NEGATIVE NEGATIVE Urine RBC (Auto) 0-3 0 - 3 /HPF Urine Bacteria (Auto) TRACE NEGATIVE /HPF Urine WBC 0-5 0 - 5 /HPF Ur Squamous Epith Cells 0-5 0 - 5 /LPF Urine Glucose NEGATIVE NEGATIVE mg /dL Urine Test NEGATIVE NEGATIVE 05/08 Range/Units 1120 Chemistry Sodium 133 L 135 - 145 m mol/L Potassium 3.6 3.5 - 5.1 mmol/L Chloride 104 98 - 107 mmol/L Carbon Dioxide 21 21 - 32 mmol/L Anion Gap 8.0 8 - 20 mmol/L BUN 8 7 - 18 mg/ dL Creatinine 0.760 0.550 - 1.020 mg/dL Est Cr Clr Drug Dosing 95.29 >=60.00 mL/min Est GFR (MDRD) Af Amer 99.35 >=60.0 mL/min Est GFR (MDRD) Non-Af 82.11 >=60.0 mL/min BUN/Creatinine Ratio 10.5 6.0 - 20.0 Glucose 97 74 - 106 mg/dL Calculated Os molality 265 L 273 - 304 mos/kg Calcium 8.6 8.5 - 10.1 mg/dL Hematology WBC 7.76 4.00 - 10.00 K/uL RBC 3.83 L 3.93 - 5.22 M/uL Hgb 7.7 L 11.2 - 15.7 g/dL Hct 26.2 L 34.1 - 44.9 % MCV 68.4 L 80.0 - 96.0 fL MCH 20 .1 L 26.1 - 33.2 pg MCHC 29.4 L 32.2 - 35.5 g/dL RDW 18.6 H 11.4 - 14.4 % Plt Count 406 150 - 450 K/uL MPV 9.5 8.5 - 11.8 fL Immature Gran % (Auto) 0.3 0.1 - 0.3 % Immature Gran # (Auto) 0.02 0.01 - 0.03 K/uL Neutrophils % 80.7 H 38.9 - 69.8 % Lymphocytes % 14.2 L 21.7 - 51.7 % Monocyte s % 4.4 L 4.7 - 12.2 % Eosinophils % 0 .0 L 0.8 - 7.0 % Basophils % 0.4 0.1 - 1.2 % Neutrophils # 6.27 1.46 - 7.12 K/uL Lymphocytes # 1.10 0.92 - 4.30 K/uL Monocyte s # 0.34 0.24 - 0.86 K/uL Eosinophils # 0. 00 L 0.04 - 0.54 K/uL Basophils # 0.03 0.01 - 0.08 K/uL Nucleated RBCs 0.0 0.0 - 0.2 /100WBC Por tions of this section were scribed by ILSA ORTIZ on 05/08/19 at 1738 Dispo sition ED DispositionDisposition HOMEClinical ImpressionPrimary Impression: Flank pain Secondary Impressions: HemangiomaQualifiers: Hemangioma site: other site Qualified Co de: D18.09 - Hemangioma of other sites Condition StablePatient Instructions DI for Flank Pain, HemangiomaPrescriptionsCurrent Visit Scr iptsTRAMADOL HCL (ULTRAM) 50 MG PO Q6H TRAMADOL HCL (ULTRAM) 50 MG PO Q6H #12 TABLET #12, TWELVE, NMT 4 TABS/DAY, FOR BREAKTHROUGH PAIN, NO ALCOHOL/DRIVIN G WHILE ON MEDICATION. ReferralsDOCTOR,NOT IN DICTIONARY LEAH MOORE (PCP) Add itional InstructionsREST, INCREASE FLUIDS, AVOID INCREASED PHYSICAL EXERTION. KEEP YOURSELF WELL-HYDRATED. FOLLOW-UP WITH YOUR ANODIC OPERATOR, DUE TO IMAGING STUDIES. I F YOU DEVELOP ANY FEVER, ANY BREAKTHROUGH NAUSEA OR VOMITING, ANY NEW VAGINAL BLEE DING, WORSENING ABDOMINAL OR FLANK PAIN THEN RETURN TO THE ED. Number of days off wo rk/school: 48 HOURS. Continue your present medications Prescriptions provided- Refe r to Medication Reconciliation Patient Discharge Summary Procedures Performed: LABS/IV FLUIDS/US PELVIS, CT ABD/PELVIS, W/O CONTRAST. at 1038 MAZIN VERAS Electronic ally Signed 05/09/19 1038 Providers:ELIZABETH VERAS MD, MICHSt. Anthony's Hospitalelbert Entered Date/Time: 05/08/19 1711Current Report Status: Sign ed Report #: [id number] PCP ID: LATASHA ATTENDING ID: ODALYS MAHI BIGGS ID: CEE Name Value Range Interpretation Code Description Data Angie rce(s) Supporting Document(s ) ID Date Data Source [id number] 05/08/2019 03:27:00 PM [facility] DEPART MENT OF DIAGNOSTIC IMAGING Patient Name: DESTINY GONZALEZ Sasha : 1975 Patient Addr.: [address], MR#: [id number] [place] [address] Patient Phone #: Dictate Date: 05/08/191654 Ordering MPatricia: MAZIN VERAS MD ID: [id number] Trans Date: Copies to: MAZIN FRANKLIN; CC ID: ; Patient Loc: L.ER Report #: [id number] Order Number(s): [id number] Site: [facility] Exam Date/Time: 06-0107/09/18 1527 Exam: TRANSVAGINAL ECHO PROCEDURE: US TRANSVAGINAL ECHO COMPARISON: Precontrast CT examination of the pelvis done prior to this examinatio n INDICATIONS: RADIOLOGIST RECOMMENDED, FOR ABSCESS, FLUID COLLECTI ON NOTED UTERUS VIEWS: Transabdominal and transvaginal probes were used. FINDINGS: The uterus is heterogeneous and is enlarged measuring 14.0 cm in brandt gth by 11.2 cm in width by 7.1 cm in AP diameter. There is a complex vascular co llection present near the fundus of the uterus measuring 4.0 x 2.6 x 1.1 cm and this may correspond to the fluid area seen on recent CT examination. The endometrium is 10 mm and contains an echogenic focus measuring 1.0 x 0.7 cm. There is a trac e amount of fluid present in the posterior cul de sac. There is some fluid present bilaterally in the cervical region. Neither ovary is visualized most likely obscured by the enlarged fibroid uterus. CONCLUSION: 1. Enlarged fibroid seldovia clif. 2. Neither ovary is visualized. 3. There is a complex vascular collection p resent in the site of the fluid collection seen on recent CT examination. Clinical correlation is suggested as well as correlation with followup. 4. There is an echogenic focus in the endometrium. This may represent possible endometrial polyp and correlation with followup is suggested. Dictated by: Mami diaz MD on 05/08/2019 at 4:43 PM Approved by: Mami Yuen MD on 12/2018 at 4:55 PM Signed: 05/08/19 1650 MAMI YUEN MD TRN: TBY Name Value Range Interpretation Code Description Data Angie rce(s) Supporting Document(s ) ID Date Data Source [id number] 05/08/2019 12:45:00 PM [facility] MENT OF DIAGNOSTIC IMAGING Patient Name: DESTINY GONZALEZ : 1975 Patient Addr.: 1902 JOE NAGY, MR#: [id number] [place] [address] Patient Phone #: Dictate Date: 05/08/19 1321 Ordering M.D.: MAZIN VERAS MD ID: [id number] Trans Date: Copies to: MAZIN FRANKLIN; CC ID: ; Patient Loc: L.ER Report #: [id number] Order Number(s): [id number] Site: [facility] Exam Date/Time: 06-0107/09/18 1244 Exam: CT ABD/PEL WO ORAL OR IV CTRST PROCEDURE: CT ABD/PEL WO ORAL OR IV CTRST COMPARISON: None. INDICATIONS: HAS HAD PRIOR H/O KID FIDEL STONES 2018, W/STENT, N/V, L FLANK, MODERATE TECHNIQUE: After obtain ing the patient's consent, CT images of the abdomen and pelvis were created without non-ionic intravenous contrast material. This CT was performed utilizing dose reductMomail n software. FINDINGS: KIDNEYS: Normal. No mass, obstruction, or calcif ication. ADRENALS: Normal. No mass or enlargement. URINARY BLADDER: Norm al. No visible focal wall thickening, lesion, or calculus. LIVER: Normal . No enlargement, atrophy, abnormal density, or significant focal lesion. BILIARY : Normal. No visible dilatation or calcification. PANCREAS: Normal. No lesion, fluid collection, ductal dilatation, or atrophy. SPLEEN: No rmal. No enlargement or focal lesion. AORTA/VASCULAR: Normal. No aneurysm. RETROPERITONEUM: Normal. No mass or adenopathy. BOWEL/MESENTERY: Alexia l. No visible mass, obstruction, or bowel wall thickening. ABDOMINAL WALL: N ormal. No mass or hernia. PELVIC NODES: Normal. No adenopathy. PELVIC ORGA NS: Uterus is markedly enlarged likely secondary to fibroids. There is an 8 x 5 cm fluid collection or fluid containing structure at the inferior aspect of the uterus/ superior aspectof the bladder. BONES: Normal. No bony lesion or frac ture. LUNG BASES: Normal. No visible pulmonary or pleural disease. OTHER: Negative. CONCLUSION: No renal ureteral or bladder stones. 8 x 5 cm fluid collection or fluid containing structure at the inferior asp ect of the uterus/ superior aspect of the bladder. Findings are nonspecific. Absc ess not excluded. Enlarge uterus likely secondary to fibroids. Fu rther evaluation with pelvic ultrasound or MRI can be obtained for further evaluati on. Dictated by: Josh Cosby MD on 05/08/2019 at 1:12 PM Approved by: Josh Cosby MD on 05/08/2019 at 1:21 PM Signed: 05/08/19 1321 JOSH COSBY MD TRN: TBY Name Value Range Interpretation Code Description Data Angie rce(s) Supporting Document(s ) ID Date Data Source [id number] 05/10/2019 08:42:00 AM EST [facility] Name Value Range Interpretation Description Data Sup porting Code Source(s) Document(s ) CLEAN CATCH No [facility] URINE growth. [facility] ID Date Data Source [id number] 05/08/2019 12:35:00 PM EST [facility] Name Value Range Interpretation Description Data Sup porting Code Source(s) Document(s ) POCT COLOR YELLOW YELLOW [facility] POCT CLARITY CLEAR CLEAR [facility] POCT GLUCOSE NEGATIVE NEGATIVE [facility] mg/dL [facility] POCT BILIRUBIN NEGATIVE NEGATIVE [facility] POCT KETONES 80 mg/dL NEGATIVE [facility] POCT SPECIFIC 1.025 1.001-1.03 [facility] GRAVITY 5 [facility] POCT BLOOD SMALL NEGATIVE [facility] POCT pH 5.5 4.6-8.0 [facility] POCT PROTEIN NEGATIVE NEGATIVE [facility] POCT 0.2 0.2-0.9 [facility] UROBILINOGEN E.U./dL [facility] POCT NITRITE NEGATIVE NEGATIVE [facility] POCT NEGATIVE NEGATIVE [facility] LEUKOCYTES [facility] ID Date Data Source [id number] 05/08/2019 12:43:00 PM EST [facility] Name Value Range Interpretation Description Data Sup porting Code Source(s) Document(s ) WBC IQ 0-5 /HPF 0-5 [facility] RBC IQ 0-3 /HPF 0-3 [facility] SQUAMOUS 0-5 /LPF 0-5 [facility] EPITHELIAL IQ [facility] BACTERIA IQ TRACE NEGATIVE [facility] /[facility] ID Date Data Source [id number] 05/08/2019 12:36:00 PM EST [facility] Name Value Range Interpretation Description Data Sup porting Code Source(s) Document(s ) URINE NEGATIVE NEGATIVE [facility] [place] (+/-) [facility] ID Date Data Source [id number] 05/08/2019 11:57:00 AM EST [facility] Name Value Range Interpretation Code Description Data Angie rce(s) Supporting Document(s ) GLUCOSE 97 mg/dL 74-106 [facility] BUN 8 mg/dL 7-18 [facility] 0.760 EST.GLOMERULAR FILTRATION RATE 82.11 mL/min >=60.0 [facility] EST.GFR 99.35 mL/min >=60.0 [facility] PHARMACY COCKCROFT-GAULT CRCLR 95.29 mL/min >=60.00 [facility] 0.760 BUN/CREAT RATIO 10.5 6.0-20.0 [facility] SODIUM 133 mmol/L 135-145 Below low normal [facility] POTASSIUM 3.6 mmol/L 3.5-5.1 [facility] CHLORIDE 104 mmol/L 98-107 [facility] CO2 21 mmol/L 21-32 [facility] ANION GAP 8.0 mmol/L 8-20 [facility] CALCIUM 8.6 mg/dL 8.5-10.1 [facility] OSMOLALITY CALCULATION 265 mos/kg 273-304 Below low normal [facility] ID Date Data Source [id number] 05/08/2019 11:28:00 AM EST [facility] Name Value Range Interpretation Description Data Sup porting Code Source(s) Document(s ) WBC 7.76 K/uL 4.00-10.[address] RBC 3.83 M/uL 3.93-5.22 Below low normal [facility] HGB 7.7 g/dL 11.2-15.7 Below low normal [facility] HCT 26.2 % 34.1-44.9 Below low normal [facility] MCV 68.4 fL 80.0-96.0 Below low normal [facility] MCH 20.1 pg 26.1-33.2 Below low normal [facility] MCHC 29.4 g/dL 32.2-35.5 Below low normal [facility] RDW 18.6 % 11.4-14.4 Above high normal [facility] PLT 406 K/uL 150-450 [facility] MPV 9.5 fL 8.5-11.8 [facility] REVA% 80.7 % 38.9-69.8 Above high normal [facility] LYM% 14.2 % 21.7-51.7 Below low normal [facility] MONO% 4.4 % 4.7-12.2 Below low normal [facility] EOS% 0.0 % 0.8-7.0 Below low normal [facility] BASO% 0.4 % 0.1-1.2 [facility] IMMATURE 0.3 % 0.1-0.3 [facility] GRANULOCYTE% [facility] The immature granulocyte count is an enu meration ofmetamyelocytes, myelocyte, and promyelocytes present in [facility] blood sa mple. It does not include band neutrophilforms. ABSOLUTE NEUTROPHIL 6.27 K/uL 1.46-7.12 [facility] LYM# 1.10 K/uL 0.92-4.30 [facility] MONO# 0.34 K/uL 0.24-0.86 [facility] EOSIN# 0.00 K/uL 0.04-0.54 Below low normal [facility] BASO# 0.03 K/uL 0.01-0.08 [facility] IMMATURE GRANULOCYTES# 0.02 K/uL 0.01-0.03 [facility] NRBC 0.0 /100WBC 0.0-0.2 [facility] Procedure Social History Code Duration Value Status Description Data Source(s ) Smoking Unknown if ever completed Unknown if ever [facility] smoked smoked [facility] Vital Signs ID Date Data Source [id number] 05/14/2019 01:06:00 AM EST [facility] Name Value Range Interpretation Code Description Data Source(s) WEIGHT 79.379 kilos 79.379 kilos [facility] HEIGHT 162.6 centimeters 162.6 centimeters [facility] ID Date Data Source [id number] 05/08/2019 11:25:00 AM EST [facility] - [id number] [place] Name Value Range Interpretation Code Description Data Source(s) WEIGHT 79.379 kilos 79.379 kilos [facility] HEIGHT 162.6 centimeters 162.6 centimeters [facility] ID Date Data Source [id number] 05/08/2019 11:25:00 AM EST [facility] - [id number] [place] Name Value Range Interpretation Code Description Data Source(s) WEIGHT 79.379 kilos 79.379 kilos [facility] HEIGHT 162.6 centimeters 162.6 centimeters [facility] ID Date Data Source [id number] 05/08/2019 11:09:00 AM EST [facility] - [id number] [place] Name Value Range Interpretation Code Description Data Source(s) WEIGHT 79.379 kilos 79.379 kilos [facility] HEIGHT 162.6 centimeters 162.6 centimeters [facility] ID Date Data Source [id number] 05/08/2019 11:08:00 AM EST [facility] - [id number] [place] Name Value Range Interpretation Code Description Data Source(s) WEIGHT 79.379 kilos 79.379 kilos [facility] HEIGHT 162.6 centimeters 162.6 centimeters [facility] ID Date Data Source [id number] 05/08/2019 11:08:00 AM EST [facility] - [id number] [place] Name Value Range Interpretation Code Description Data Source(s) WEIGHT 79.379 kilos 79.379 kilos [facility] HEIGHT 162.6 centimeters 162.6 centimeters [facility] ID Date Data Source [id number] 05/08/2019 11:08:00 AM EST [facility] - [id number] [place] Name Value Range Interpretation Code Description Data Source(s) WEIGHT 79.379 kilos 79.379 kilos [facility] HEIGHT 162.6 centimeters 162.6 centimeters [facility] ID Date Data Source [id number] 05/08/2019 11:06:00 AM EST [facility] - [id number] [place] Name Value Range Interpretation Code Description Data Source(s) WEIGHT 79.379 kilos 79.379 kilos [facility] HEIGHT 162.6 centimeters 162.6 centimeters [facility] ID Date Data Source [id number] 05/08/2019 11:06:00 AM EST [facility] - [id number] [place] Name Value Range Interpretation Code Description Data Source(s) WEIGHT 79.379 kilos 79.379 kilos [facility] HEIGHT 162.6 centimeters 162.6 centimeters [facility] ID Date Data Source [id number] 05/08/2019 11:05:00 AM EST [facility] - [id number] [place] Name Value Range Interpretation Code Description Data Source(s) WEIGHT 79.379 kilos 79.379 kilos [facility] HEIGHT 162.6 centimeters 162.6 centimeters [facility] ID Date Data Source [id number] 05/08/2019 11:05:00 AM EST [facility] - [id number] [place] Name Value Range Interpretation Code Description Data Source(s) WEIGHT 79.379 kilos 79.379 kilos [facility] HEIGHT 162.6 centimeters 162.6 centimeters [facility] ID Date Data Source [id number] 05/08/2019 11:05:00 AM EST [facility] - [id number] [place] Name Value Range Interpretation Code Description Data Source(s) WEIGHT 79.379 kilos 79.379 kilos [facility] HEIGHT 162.6 centimeters 162.6 centimeters [facility] ID Date Data Source [id number] 05/08/2019 11:05:00 AM EST [facility] - [id number] [place] Name Value Range Interpretation Code Description Data Source(s) WEIGHT 79.379 kilos 79.379 kilos [facility] HEIGHT 162.6 centimeters 162.6 centimeters [facility] ID Date Data Source [id number] 05/08/2019 11:05:00 AM EST [facility] - [id number] [place] Name Value Range Interpretation Code Description Data Source(s) WEIGHT 79.379 kilos 79.379 kilos [facility] HEIGHT 162.6 centimeters 162.6 centimeters [facility] ID Date Data Source [id number] 05/08/2019 11:04:00 AM EST [facility] - [id number] [place] Name Value Range Interpretation Code Description Data Source(s) WEIGHT 79.379 kilos 79.379 kilos [facility] HEIGHT 162.6 centimeters 162.6 centimeters [facility] Patient Treatment Plan of Care Planned Activity Planned Date Details Description Data Source (s) tramadol hydrochloride 50 05/08[facility]2019 [facility] [Ultram[facility] AM EST [facility] pantoprazole 40 MG [facility] [Protonix[facility]
--- NOTE | 2020-03-06 07:18 | HP ---
History & Physical Update - History History: No Change - Physical Physical: No Change - Assessment Assessment: No Change - Plan Plan: No Change (H&P reviwed, no changes ,for spracervical abdominal hystere ctomy ,bilateral salpingectomy)
[2020-03-06] MEDS ORDERED: DEXAMETHASONE SOD PHOSPHATE/PF 10 MG/ML SDV ONE (07:29)
[2020-03-06] MEDS ORDERED: MIDAZOLAM HCL 2 MG/2 ML SINGLE DOSE VIAL ONE ×3 (07:40→09:06)
[2020-03-06] MEDS ORDERED: KETOROLAC TROMETHAMINE 30 MG/1 ML VIAL ONE (09:05)
[2020-03-06] MEDS ORDERED: DEXAMETHASONE SOD PHOSPHATE 4 MG/1 ML VIAL ONE (09:05)
[2020-03-06] MEDS ORDERED: ROCURONIUM BROMIDE 50 MG/5 ML SYRINGE ONE (09:06)
[2020-03-06] MEDS ORDERED: fentaNYL CITRATE 250 MCG/5 ML VIAL ONE (09:06)
[2020-03-06] MEDS ORDERED: PROPOFOL 20 ML ONE (09:06)
[2020-03-06] MEDS ORDERED: ceFAZolin SODIUM 1 GM VIAL ONE (09:25)
[2020-03-06] MEDS ORDERED: ceFAZolin SODIUM 1 GM VIAL IVPB ONE (09:26)
[2020-03-06] MEDS ORDERED: oxyCODONE HCL 5 MG TABLET PO PRN ×3 (09:34→11:13)
[2020-03-06] MEDS ORDERED: ONDANSETRON 4 MG/2 ML VIAL IVPUSH PRN ×2 (09:34→11:12)
[2020-03-06] MEDS ORDERED: HYDROmorphone HCl 2 MG/ML VIAL ONE (10:16)
[2020-03-06] MEDS ORDERED: IBUPROFEN 800 MG/8 ML IJ IVPB PRN (11:12)
[2020-03-06] MEDS ORDERED: PANTOPRAZOLE 40 MG TABLET PO PRN (11:14)
[2020-03-06] MEDS ORDERED: ACETAMINOPHEN 325 MG TABLET (FP) PO PRN (11:19)
--- NOTE | 2020-03-06 11:19 | OP ---
Operative Note - Note: Operative Date: 03/06/20 Pre-Operative Diagnosis: pelvic pain, menometrorrhagia , fibroid uterus Operation: supracervical abdominal hysterectomy, bilateral salpingectomy Findings: large uterus with fibroid and adenomyosis Surgeon: Refugio Gonzalez Focus Puller: Cece Aguirre Anesthesia: General Specimens Removed: uterus, both tubes Estimated Blood Loss (mls): 200 Drains & Tubes with Location: barros Drains, Volume Out (mls): 100 Blood Volume Replaced (mls): 0 Fluid Volume Replaced (mls): 1,200 Operative Report Dictated: Yes
[2020-03-06] MEDS ORDERED: HYDROmorphone *PCA* 10MG/50ML DISP.SYRIN ONE (11:20)
[2020-03-06] MEDS ORDERED: BISACODYL 5 MG TABLET.DR (FP) PO PRN (11:20)
[2020-03-06] MEDS: ELECTROLYTE-148 SOLN 1,000 ML IV SCH ×2 (11:55→21:31)
[2020-03-06] MEDS ORDERED: ACETAMINOPHEN 325 MG TABLET (FP) PO SCH (12:00)
[2020-03-06] MEDS: LACTATED RINGERS SOLUTION 1,000 ML IV SCH (16:19)
[2020-03-06] MEDS: HYDROmorphone *PCA* 10MG/50ML DISP.SYRIN PCA SCH (16:20)
[2020-03-06] MEDS: ceFAZolin 2 GRAM PREMIX BAG IVPB SCH (17:49)
[2020-03-07] MEDS: ceFAZolin 2 GRAM PREMIX BAG IVPB SCH ×2 (01:20→09:50)
[2020-03-07] MEDS ORDERED: PCA PUMP NR ONE ×2 (05:36→10:22)
[2020-03-07] MEDS: HYDROmorphone *PCA* 10MG/50ML DISP.SYRIN PCA SCH (05:40)
[2020-03-07 08:20] LABS: BLOOD UREA NITROGEN 6.6 mg/dL (7-18); CALCIUM 8.2 mg/dL (8.5-10.1); CREATININE 0.7 mg/dL (0.55-1.3)
[2020-03-07 08:30] LABS: HEMATOCRIT 35.1 % (32.4-45.2); HEMOGLOBIN 11.6 GM/dL (10.7-15.3); MCH 30.8 pg (25.7-33.7); MEAN CELL VOLUME 93.5 fl (80-96); MEAN PLT VOLUME 7.8 fl (7.5-11.1); PLATELET COUNT 319 K/MM3 (134-434); RBC 3.75 M/mm3 (3.60-5.2); RDW 13.3 % (11.6-15.6); WHITE BLOOD COUNT 12.6 K/mm3 (4.0-10.0)
[2020-03-07] MEDS: ENOXAPARIN NA (PORCINE) 40 MG/0.4 ML DISP.SYRIN SQ SCH (09:50)
[2020-03-07] MEDS: IBUPROFEN 600 MG TABLET (FP) PO PRN (12:06)
[2020-03-07] MEDS: SIMETHICONE 80 MG TAB.CHEW (FP) PO PRN (12:06)
--- NOTE | 2020-03-07 13:10 | PN ---
Progress Note (short form) - Note Progress Note: pod 1 s/p hysterectomy , ambulating , not passing gas , voids ok, no vaginal discharge CBC, BMP 03/07/20 06:40 03/07/20 06:40 Last Vital Signs Temp Pulse Resp BP Pulse Ox 98.6 F 109 H 20 107/65 99 03/07/20 07:13 03/07/20 09:00 03/07/20 09:00 03/07/20 09:00 03/07/20 09:00 abdomn soft, no distension, no cva BS are hypoactive incision dry , clean no calf tenderness plan ambulate , advance diet DVT prophylaxis
--- NOTE | 2020-03-07 13:22 | PN ---
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 - Current Medication List Current Medications: Active Medications Acetaminophen (Tylenol -) 650 mg PO Q4H PRN PRN Reason: PAIN LEVEL 1 - 3 Bisacodyl (Dulcolax -) 10 mg PO DAILY PRN PRN Reason: CONSTIPATION Cefazolin Sodium/Dextrose (Ancef 2 Gm Premixed Ivpb -) 2 gm IVPB Q8H-IV [place] Stop: 03/07/20 17:59 Last Admin: 03/07/20 09:50 Dose: 2 gm Documented by: Enoxaparin Sodium (Lovenox -) 40 mg SQ DAILY [place] Last Admin: 03/07/20 09:50 Dose: 40 mg Documented by: Fentanyl (Sublimaze Injection -) 50 mcg IVPUSH [id number] PRN PRN Reason: PAIN-PACU ORDER X 4 DOSES ONLY Last Admin: 03/06/20 11:34 Dose: 50 mcg Documented by: Lactated Ringer's (Lactated Ringers Solution) 1,000 mls @ 125 mls/hr IV ASDIR [place] Last Admin: 03/06/20 16:19 Dose: Not Given Documented by: Parenteral Electrolytes (Plasma-Lyte 148 -) 1,000 mls @ 125 mls/hr IV ASDIR [place] Last Admin: 03/06/20 21:31 Dose: 125 mls/hr Documented by: Ibuprofen (Caldolor Injection -) 800 mg IVPB Q6H PRN PRN Reason: Fever - If PO not effective. Ibuprofen (Motrin -) 600 mg PO Q6H PRN PRN Reason: FEVER Last Admin: 03/07/20 12:06 Dose: 600 mg Documented by: Ondansetron HCl (Zofran Injection) 4 mg IVPUSH Q6H PRN PRN Reason: NAUSEA AND/OR VOMITING Ondansetron HCl (Zofran Injection) 4 mg IVPUSH Q6H PRN PRN Reason: NAUSEA Pantoprazole Sodium (Protonix -) 40 mg PO DAILY PRN PRN Reason: acid reflux Simethicone (Mylicon -) 80 mg PO Q4H PRN PRN Reason: GAS Last Admin: 03/07/20 12:06 Dose: 80 mg Documented by: - Objective Vital Signs: Vital Signs Temperature 98.6 F 03/07/20 07:13 Pulse Rate 109 H 03/07/20 09:00 Respiratory Rate 20 03/07/20 09:00 Blood Pressure 107/65 03/07/20 09:00 O2 Sat by Pulse Oximetry (%) 99 03/07/20 09:00 Constitutional: Yes: Well Nourished Cardiovascular: Yes: WNL Respiratory: Yes: WNL Gastrointestinal: Yes: WNL Labs: CBC, BMP 03/07/20 06:40 03/07/20 06:40 Assessment/Plan No adverse effects of anesthetic, 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
[2020-03-07] MEDS ORDERED: oxyCODONE HCL 5 MG TABLET PO PRN ×2 (17:01→18:24)
[2020-03-08] MEDS: SIMETHICONE 80 MG TAB.CHEW (FP) PO PRN ×3 (02:34→13:32)
[2020-03-08] MEDS: IBUPROFEN 600 MG TABLET (FP) PO PRN ×3 (02:35→13:31)
[2020-03-08] MEDS: ENOXAPARIN NA (PORCINE) 40 MG/0.4 ML DISP.SYRIN SQ SCH (10:32)
[2020-03-08] MEDS: ELECTROLYTE-148 SOLN 1,000 ML IV SCH (12:08)
[2020-03-08] MEDS: LACTATED RINGERS SOLUTION 1,000 ML IV SCH (12:08)
--- NOTE | 2020-03-08 14:57 | DS ---
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 Vital Signs: Vital Signs Temperature 98.9 F 03/08/20 06:00 Pulse Rate 90 03/08/20 06:00 Respiratory Rate 20 03/08/20 06:00 Blood Pressure 100/62 03/08/20 06:00 O2 Sat by Pulse Oximetry (%) 94 L 03/07/20 22:00 Constitutional: Yes: Well Nourished, No Distress, Calm Eyes: Yes: WNL, Conjunctiva Clear, EOM Intact HENT: Yes: WNL, Atraumatic, Normocephalic Neck: Yes: WNL, Supple, Trachea Midline Cardiovascular: Yes: WNL, Regular Rate and Rhythm Respiratory: Yes: WNL, Regular, CTA Bilaterally Gastrointestinal: Yes: WNL ...Rectal Exam: Yes: WNL Renal/: Yes: WNL Breast(s): Yes: WNL Musculoskeletal: Yes: WNL Extremities: Yes: WNL Edema: No Integumentary: Yes: WNL Wound/Incision: Yes: Clean/Dry, Well Approximated, Sutures Intact Neurological: Yes: WNL, Alert, Oriented ...Motor Strength: WNL Psychiatric: Yes: WNL, Alert, Oriented Labs: CBC, BMP 03/07/20 06:40 03/07/20 06:40 Discharge Summary Problems reviewed: Yes Reason For Visit: MENORRHAGIA/FIBROIDS OF THE UTERUS pelvic pain, menorrhagia Procedures: Principal: supra cervical abdominal hysterectomy, bilateral salpingectomy Hospital Course: no complication Plan of Treatment: follow up office 2 weeks Condition: Good - Instructions Diet, Activity, Other Instructions: regular diet, no intercourse , follow up office 2 weeks, if fever, pain , bleeding call md Referrals: Refugio Gonzalez MD [Staff Physician] - Disposition: HOME - Home Medications Comprehensive Discharge Medication List: Ambulatory Orders L.acidoph,Paracasei, B.lactis [Probiotic] 1 each PO DAILY 03/05/20 Pantoprazole Sodium 40 mg PO PRN PRN 03/05/20 Triamcinolone Acetonide [Nasacort] 1 spray NS PRN PRN 03/05/20 Ibuprofen [Motrin -] 600 mg PO QID #28 tablet 03/07/20 Oxycodone HCl [Oxaydo] 5 mg PO QID PRN #20 tablet.orl MDD 4 03/07/20
[2020-03-08 15:43] VITALS: BP 100/60; PULSE 91; TEMP 98.8
--- NOTE | 2020-03-08 16:17 | OP ---
DATE OF OPERATION: 03/06/2020 PREOPERATIVE DIAGNOSIS: Menometrorrhagia, pelvic pain, and fibroid uterus. POSTOPERATIVE DIAGNOSIS: Menometrorrhagia, pelvic pain, and fibroid uterus. PROCEDURE: Supracervical abdominal hysterectomy and bilateral salpingectomy. SURGEON: Refugio Gonzalez MD SOCIAL WORK ASSOCIATE: Cece Aguirre MD ESTIMATED BLOOD LOSS: 150 mL. FINDINGS: A large uterus with fibroids and adenomyosis. Both ovaries appeared to be normal. DESCRIPTION OF THE PROCEDURE: Patient was taken to the operating room. Under adequate general anesthesia the abdomen and perineum were prepped and draped. A Pfannenstiel abdominal skin incision was made. Abdominal wall was cut layer by layer until peritoneum was exposed and incised. Upon entering the abdominal cavity upper abdomen was checked and was normal and bowels were packed away. There was a large uterus with fibroids and there appeared to be adenomyosis. Both ovaries were normal. Bladder was normal. Cul-de-sac free of adhesions. Then both cornual regions of the uterus were grasped with 2 clamp Marian and the uterus was delivered. Both round ligaments were identified, clamped with a Rand clamp, and then cauterized with bipolar LigaSure cautery and cut and then the bladder flap was developed and bladder was pushed down. Then the right tube was grasped with Steven clamp, the right tube was cauterized along the mesosalpinx with bipolar LigaSure cautery bilaterally and both tubes were removed. Then a hole was made in the right and left broad ligament and then the uteroovarian ligament was grasped with a Reagan clamp, cut, and the clamp replaced with 2 double LigaSure sutures of the bilaterally and ovaries were severed from the uterus. Then the bladder was further pushed down and then uterine artery was identified bilaterally, skeletonized, and clamped with Reagan clamp and cut and the clamp replaced with 0-Vicryl suture bilaterally. Then the paracervical area was clamped with Reaagn clamps, cut, and the clamp replaced with the Vicryl suture bilaterally. Then the uterus was removed above the cervix with cautery and then the cervix was grasped with the Allis clamp and then sutured with an interrupted suture of 1 Vicryl and hemostasis was established then. Then the pelvic cavity several times was irrigated and no bleeding was seen. Pelvic cavity flow was reperitonealized with a continuous suture of 2-0 Vicryl and both ovaries were checked, no bleeding, and appeared to be normal. All the lap pad, sponge counts, and instrument counts were correct. Peritoneum was closed with 0 Vicryl continuous suture. Muscles were brought together with interrupted suture of 0 Vicryl. The fascia was closed with 0 Vicryl continuous suture, subcutaneous fat with interrupted suture of 0 Vicryl, and the skin was closed with 3-0 Vicryl subcuticular continuous sutures. The patient tolerated the procedure well and left the OR in good condition. Urine was clear. Nicole [id number]
--- NOTE | 2020-03-08 16:20 | PATH ---
Surgical Pathology Report Patient Name: DESTINY GONZALEZ [facility]. Rec. #: [id number] /Age/Gender: 1975 (Age: 44) / F Account: [id number] Location: [facility] MED/SURG Taken: 03/06/2020 Received: 03/06/2020 Reported: 03/08/2020 Physicians: Refugio Gonzalez M.D. Specimen(s) Received A: LEFT FALLOPIAN TUBE B: RIGHT FALLOPIAN TUBE C: UTERUS Clinical History Menorrhagia, fibroid Final Diagnosis A. FALLOPIAN TUBE, LEFT, SALPINGECTOMY: FALLOPIAN TUBE WITH PARATUBAL CYST AND FOCAL ENDOSALPINGOSIS (INCLUDING FIMBRIATED END AND FULL LUMINAL PORTION). B. FALLOPIAN TUBE, RIGHT, SALPINGECTOMY: UNREMARKABLE FALLOPIAN TUBE (INCLUDING FIMBRIATED END AND FULL LUMINAL PORTION). C. UTERUS, SUPRACERVICAL HYSTERECTOMY: 579 G UTERUS. LEIOMYOMA(TA), INTRAMURAL. ENDOMETRIAL POLYP. PROLIFERATIVE ENDOMETRIUM. MYOMETRIUM WITH ADENOMYOSIS. SCANT RESIDUAL BENIGN ENDOCERVICAL MUCOSA. Electronically Signed Leanna Guillen M.D. Gross Description A. Received in formalin labeled "left fallopian tube," is a 5.5 cm length of fimbriated fallopian tube. The outer surface is conway purple with a 1.0 cm in greatest dimension paratubal cyst attached. Sectioning reveals an unremarkable lumen. [employer]ice sections are submitted in 2 cassettes as follows: 1-fimbria; 2-cross sections of fallopian tube and paratubal cyst. B. Received in formalin labeled "right fallopian tube," is a 6.5 cm in length fimbriated fallopian tube. The outer surface is conway purple and smooth. Sectioning reveals an unremarkable lumen. Lead [employer] Apprentice sections are submitted in 2 cassettes as follows: 1-fimbria; 8-zbrjs-gkxuxbhn of fallopian tube. C. Received in formalin labeled "uterus," is a 579 g supracervically amputated uterus with no attached adnexa. The specimen measures 10.5 cm from superior to inferior, 9.5 cm from left to right and 8 cm from anterior to posterior. The serosa is zambrano-conway and smooth. The endometrial cavity measures 8.5 cm in length and averages 3.5 cm from cornu to cornu. The endometrium is zambrano brown and lush, measuring up to 0.4 cm in thickness. An endometrial polyp is identified measuring 1 x 0.8 x 0.7 cm at the anterior fundus. The myometrium is zambrano-pink with diffuse whorled, trabeculated architecture, consistent with adenomyosis. There are multiple intramural nodules present, measuring up to 2.0 cm in greatest dimension. The cut surface of the intramural nodules is zambrano and rubbery with whorled architecture. No areas of hemorrhage or necrosis are identified. The myometrium averages 4 cm in thickness. Lead [employer] Apprentice sections are submitted in 10 cassettes as follows: 1-cervical stump margin of resection; 8-4-vcpwrmna submitted endometrial polyp; 7-5-ohahyhndhh endomyometrium; 3-27-irnjbaajih nodules. 03/07/2020 [facility]03/07/2020
== END 2020-03-08 17:30 | disposition home or self-care (01) | DRG 743 ==
LOC: J2C 04:36 → J8W 14:21
PROVIDERS: ADMIT Obstetrics & Gynecology; ATTEND Obstetrics & Gynecology
PROC: 0UT70ZZ Resection of Bilateral Fallopian Tubes, Open Approach (ICD-10-PCS; 2020-03-06)
PROC: 0UT90ZL Resection of Uterus, Supracervical, Open Approach (ICD-10-PCS; principal; 2020-03-06 09:00)
DX: D25.1 Intramural leiomyoma of uterus (principal); N92.1 Excessive and frequent menstruation with irregular cycle; R10.2 Pelvic and perineal pain; N84.0 Polyp of corpus uteri; N80.0 Endometriosis of uterus
CPT/HCPCS: 36415; 80048; 84703; 85027; 86850; 86900; 86901; 86922; 88302-TC; 88305-TC; 94010; 94760